=== PATIENT | male | born 1960 | race Caucasian/White ===

== ENCOUNTER 2023-06-01 07:29 | Outpatient (RCR) | payer OTHER, SELFPAY | END 2023-06-11 23:59 | disposition home or self-care (01) | LOC: SPT 07:29 | PROVIDERS: PCP Internal Medicine; Visit Provider Orthopaedic Surgery Hand Surgery | DX: G20.A1 Parkinson's disease without dyskinesia, without mention of fluctuations (principal) | CPT/HCPCS: 97110; 97162 ==

== ENCOUNTER 2023-06-22 10:45 | Outpatient (RCR) | payer OTHER, SELFPAY | END 2023-07-11 23:59 | disposition home or self-care (01) | LOC: SPT 10:45 | PROVIDERS: PCP Internal Medicine; Visit Provider Orthopaedic Surgery Hand Surgery | DX: G20.A1 Parkinson's disease without dyskinesia, without mention of fluctuations (principal) | CPT/HCPCS: 97110 ==

== ENCOUNTER → 2023-07-11 11:11 | Outpatient (BNVA) | payer OTHER, SELFPAY | PROVIDERS: PCP Internal Medicine; Visit Provider Student in an Organized Health Care Education/Training Program | DX: R29.898 Other symptoms and signs involving the musculoskeletal system; M62.81 Muscle weakness (generalized); S46.002A Unspecified injury of muscle(s) and tendon(s) of the rotator cuff of left shoulder, initial encounter; X58.XXXA Exposure to other specified factors, initial encounter; G20.A1 Parkinson's disease without dyskinesia, without mention of fluctuations | CPT/HCPCS: 73030 ==

== ENCOUNTER 2023-08-17 06:49 | Outpatient (CLI) | payer OTHER, SELFPAY ==
--- NOTE | 2023-08-17 07:15 | MR_ITS ---
WS: [id number] MRI OF THE LEFT HUMERUS WITHOUT GADOLINIUM ENHANCEMENT INDICATION: LEFT shoulder pain and stiffness. Limited range of motion. TECHNIQUE: Coronal T1, coronal STIR, sagittal T1, sagittal STIR, axial PD, axial T2 fat-sat. FINDINGS: Normal bone marrow signal in the humerus. No acute fractures. Normal visualized soft tissue s about the humerus. Brachialis is normal in appearance. Normal brachialis tendon insertion on the ul na. Biceps brachii is normal in appearance. Distal biceps tendon appears intact extending to the inse rtion on the radial tuberosity. No edema within the biceps brachii and brachialis muscle. MR/MR humerus LT wo con* [id number] IMPRESSION: Biceps brachii and brachialis tendons appear intact
--- NOTE | 2023-08-17 08:00 | MR_ITS ---
WS: [id number] MRI LEFT SHOULDER NONCONTRAST TECHNIQUE: Sagittal T2, coronal T1, T2 and proton density imaging. Axial gradient PDE imaging. CLINICAL INFORMATION: rule out biceps tear/tendon tear/rotator cuff tear COMPARISON: None. FINDINGS: Some images degraded by motion. Moderate degenerative arthritis of the AC joint with mild edema. Mild downsloping acromion with subac romial spurring. Impingement of the distal supraspinatus. Tendinopathy in the distal supraspinatus. T iny insertional tear. Normal infraspinatus. Normal teres minor. Subscapularis appears intact. Biceps tendon in the bicipita l groove. Biceps labral anchor appears intact. Small intra-articular biceps tendon. Normal bone marro w signal in the humerus and glenoid. Moderate to advanced degenerative narrowing of the glenohumeral articulation. MR/MR shoulder LT wo con* [id number] IMPRESSION: 1. Moderate degenerative arthritis AC joint with mild edema. Mild downsloping acromion with impingement of the distal supraspinatus. 2. Tendinopathy supraspinatus with a tiny insertional tear. 3. Rotator cuff is otherwise intact. 4. Biceps tendon intact within the bicipital groove. Small intra-articular bic eps tendon. 5. Advanced degenerative narrowing of the glenohumeral articulation. 6. Normal bone marrow signal in the glenoid and humerus.
== END 2023-08-17 06:50 | disposition home or self-care (01) ==
LOC: RAD 06:49
PROVIDERS: PCP Internal Medicine; Visit Provider Student in an Organized Health Care Education/Training Program
DX: M19.012 Primary osteoarthritis, left shoulder (principal); M67.813 Other specified disorders of tendon, right shoulder
CPT/HCPCS: 73218; 73221

== ENCOUNTER 2024-05-22 11:53 | Outpatient (RCR) | payer MEDICARE, OTHER, SELFPAY | END 2024-06-10 23:59 | disposition home or self-care (01) | LOC: SOT 11:53 | PROVIDERS: Visit Provider Physical Medicine & Rehabilitation | DX: G12.21 Amyotrophic lateral sclerosis (principal) | CPT/HCPCS: 97110; 97140; 97166; 97530 ==

== ENCOUNTER → 2024-06-03 14:09 | Outpatient (BNVA) | payer MEDICARE, OTHER, SELFPAY | PROVIDERS: Visit Provider Podiatrist Foot & Ankle Surgery | DX: B35.1 Tinea unguium (principal) | CPT/HCPCS: 99213 ==

== ENCOUNTER 2024-06-10 09:48 | Outpatient (CLI) | payer MEDICARE, OTHER, SELFPAY ==
[2024-06-10 10:50] LABS: Alanine Aminotransferase < 5 U/L (0-41); Albumin Level 4.5 g/dL (3.5-5.2); Alkaline Phosphatase 73 U/L (40-130); Anion Gap 13.2 (5-19); Aspartate Amino Transferase 10 U/L (0-40); Blood Urea Nitrogen 13 mg/dL (8-23); Calcium 8.7 mg/dL (8.5-10.5); Carbon Dioxide 28 mmol/L (22-29); Chloride 100 mmol/L (98-107); Globulin 2.3 g/dL (1.3-4.6); Glomerular Filtration Rate 135.6 mL/min (90-130); Glucose 207 mg/dL (65-115); Osmolality Calculated 290 mOsm/kg (285-295); Potassium 4.2 mmol/L (3.5-5.1); Sodium 137 mmol/L (136-145); Total Bilirubin 0.4 mg/dL (0.15-1.2); Total Protein 6.8 g/dL (6.6-8.7)
== END 2024-06-10 09:49 | disposition home or self-care (01) ==
PROVIDERS: PCP Family Medicine; Visit Provider Podiatrist Foot & Ankle Surgery
DX: B35.1 Tinea unguium (principal)
CPT/HCPCS: 36415; 80053

== ENCOUNTER 2024-06-11 06:00 | Outpatient (RCR) | payer MEDICARE, OTHER, SELFPAY | END 2024-07-10 23:59 | disposition home or self-care (01) | LOC: SOT 06:00 | PROVIDERS: PCP Family Medicine; Visit Provider Physical Medicine & Rehabilitation | DX: G12.21 Amyotrophic lateral sclerosis (principal) | CPT/HCPCS: 97110; 97140 ==

== ENCOUNTER 2024-07-11 05:00 | Outpatient (RCR) | payer MEDICARE, OTHER, SELFPAY | END 2024-08-10 23:55 | disposition home or self-care (01) | LOC: SOT 05:00 | PROVIDERS: PCP Family Medicine; Visit Provider Physical Medicine & Rehabilitation | DX: G12.21 Amyotrophic lateral sclerosis (principal) | CPT/HCPCS: 97110; 97140; 97530 ==

== ENCOUNTER 2024-08-11 05:00 | Outpatient (RCR) | payer MEDICARE, OTHER, SELFPAY | END 2024-09-09 23:59 | disposition home or self-care (01) | LOC: SOT 05:00 | PROVIDERS: PCP Family Medicine; Visit Provider Physical Medicine & Rehabilitation | DX: G12.21 Amyotrophic lateral sclerosis (principal) | CPT/HCPCS: 97110; 97140 ==

== ENCOUNTER 2024-09-10 06:30 | Outpatient (RCR) | payer MEDICARE, OTHER, SELFPAY | END 2024-10-10 23:59 | disposition home or self-care (01) | LOC: SOT 06:30 | PROVIDERS: PCP Family Medicine; Visit Provider Physical Medicine & Rehabilitation | DX: G12.21 Amyotrophic lateral sclerosis (principal) | CPT/HCPCS: 97140 ==

== ENCOUNTER 2024-10-11 05:00 | Outpatient (RCR) | payer MEDICARE, OTHER, SELFPAY | END 2024-11-10 23:59 | disposition home or self-care (01) | LOC: SOT 05:00 | PROVIDERS: PCP Family Medicine; Visit Provider Physical Medicine & Rehabilitation | DX: G12.21 Amyotrophic lateral sclerosis (principal) | CPT/HCPCS: 97140 ==

== ENCOUNTER → 2024-12-09 08:26 | Outpatient (BNVA) | payer MEDICARE, OTHER, SELFPAY | PROVIDERS: PCP Family Medicine; Visit Provider Podiatrist Foot & Ankle Surgery | DX: L60.8 Other nail disorders (principal); B35.1 Tinea unguium | CPT/HCPCS: 99213 ==